=== PATIENT | male | born 1970 | race Caucasian/White ===

== ENCOUNTER 2024-06-20 17:40 | Emergency (ER) | payer OTHER ==
--- NOTE | 2024-06-20 20:29 | ED ---
Trauma HPI - General Chief Complaint: Extremity Injury, Upper Stated Complaint: posb broken wrist Time Seen by Provider: 06/20/24 18:20 Source: patient Mode of arrival: ambulatory Limitations: no limitations - History of Present Illness Initial Comments: 53-year-old male presents to the emergency department with right wrist pain. States that he fell off of the back of his work truck. He went into urgent care. Had confirmed fracture. States that he was placed in a splint and referred to the hospital because he was having some tingling in the palm of his hand. Patient is able to move all 5 digits. He does have flexion and extension at the wrist however it is painful. Patient is right-hand dominant. He denies any injuries additional injuries. No head injury. Patient does not take any blood thinners. No elbow or shoulder pain. No other alleviating, precipitating or modifying factors - Related Data Previous Rx's Medication Instructions Recorded HYDROcodone/APAP 7.5-325MG [[place] 1 tab PO Q6HR PRN 3 Days #12 tab 06/20/24 7.5-325] Ibuprofen [Motrin] 600 mg PO Q8HR PRN #30 tab 06/20/24 Allergies Allergy/AdvReac Type Severity Reaction Status Date / Time Penicillins Allergy Rash/Hives Verified 06/20/24 18:22 Review of Systems ROS Statement: Those systems with pertinent positive or pertinent negative responses have been documented in the HPI. ROS Other: All systems not noted in ROS Statement are negative. Past Medical History Past Medical History: CVA/TIA History of Any Multi-Drug Resistant Organisms: None Reported Additional Past Surgical History / Comment(s): septal occluder Past Psychological History: No Psychological Hx Reported Smoking Status: Never smoker Past Alcohol Use History: None Reported Past Drug Use History: None Reported General Exam Limitations: no limitations General appearance: alert, in no apparent distress Head exam: Present: atraumatic, normocephalic, normal inspection Eye exam: Present: normal appearance, PERRL, EOMI. Absent: scleral icterus, conjunctival injection, periorbital swelling Cardiovascular Exam: Present: regular rate, normal rhythm, normal heart sounds. Absent: systolic murmur, diastolic murmur, rubs, gallop, clicks GI/Abdominal exam: Present: soft, normal bowel sounds. Absent: distended, tenderness, guarding, rebound, rigid Extremities exam: Present: other (Soft brace on the right wrist. Patient does have some obvious bruising and swelling. No significant deformity. Full normal range of motion of all 5 digits. Patient does have intact sensation to to point discrimination and light touch. Compartments are soft) Course Vital Signs 06/20/24 06/20/24 18:18 20:50 Temperature 98.1 F 98.2 F Pulse Rate 62 64 Respiratory 16 18 Rate Blood Pressure 132/77 107/72 O2 Sat by Pulse 99 98 Oximetry Medical Decision Making - Medical Decision Making Was pt. sent in by a medical professional or institution (, PA, [employer], urgent care, hospital, or snf...) When possible be specific @ -Patient was sent in from urgent care Did you speak to anyone other than the patient for history (EMS, parent, family, police, friend...)? What history was obtained from this source @ -Spoke with significant other for history Did you review nursing and triage notes (agree or disagree)? Why? @ -I reviewed and agree with nursing and triage notes Were old charts reviewed (outside hosp., previous admission, EMS record, old EKG, old radiological studies, urgent care reports/EKG's, snf records)? Report findings @ -I reviewed the x-rays that were performed at the urgent care Differential Diagnosis (chest pain, altered mental status, abdominal pain women, abdominal pain men, vaginal bleeding, weakness, fever, dyspnea, syncope, headache, dizziness, GI bleed, back pain, seizure, CVA, palpatations, mental health, musculoskeletal)? @ -Differential Musculoskeletal Muscular strain, contusion, ligament sprain, fracture, arthritis, septic arthritis, bursitis, cellulitis, muscle spasm, nerve compression, DVT, arterial occlusion, herpes zoster, electrolyte abnormality, tumor.... This is not meant to be in all inclusive list EKG interpreted by me (3pts min.). @ -None X-rays interpreted by me (1pt min.). @ -None done CT interpreted by me (1pt min.). @ -None done U/S interpreted by me (1pt. min.). @ -None done What testing was considered but not performed or refused? (CT, X-rays, U/S, labs)? Why? @ -None What meds were considered but not given or refused? Why? @ -None Did you discuss the management of the patient with other professionals (professionals i.e. , PA, [employer], lab, RT, psych nurse, delinquency prevention social worker, inclusion paraeducator, teacher, audit officer, dependency case manager)? Give summary @ -No Was smoking cessation discussed for >3mins.? @ -No Was critical care preformed (if so, how long)? @ -No Were there social determinants of health that impacted care today? How? (Homelessness, low income, unemployed, alcoholism, drug addiction, transportation, low edu. Level, literacy, decrease access to med. care, correction, rehab)? @ -No Was there de-escalation of care discussed even if they declined (Discuss DNR or withdrawal of care, Hospice)? DNR status @ -No What co-morbidities impacted this encounter? (DM, HTN, Smoking, COPD, CAD, Cancer, CVA, ARF, Chemo, Hep., AIDS, mental health diagnosis, sleep apnea, morbid obesity)? @ -None Was patient admitted / discharged? Hospital course, mention meds given and route, prescriptions, significant lab abnormalities, going to OR and other pertinent info. @ -Upon arrival patient seen and evaluated in [place] [id number]. Thorough history and physical exam was performed. I did review the x-rays that came with the patient from urgent care. Demonstrates nondisplaced fracture of the radius. Patient does have some neuropraxia. He is placed in a sugar-tong splint. Patient is to follow-up with orthopedics for further management of his injury. Patient is aware that he is not to get his splint wet. Do not take it off. Rest, ice and elevate the extremity. He was prescribed pain medications. Instructed to return for any new or worsening symptoms. Patient agreeable plan was discharged in stable condition Undiagnosed new problem with uncertain prognosis? @ -No Drug Therapy requiring intensive monitoring for toxicity (Heparin, Nitro, Insulin, Cardizem)? @ -No Were any procedures done? @ -No Diagnosis/symptom? @ -Acute fall off truck, acute right distal radius fracture Acute, or Chronic, or Acute on Chronic? @ -Acute Uncomplicated (without systemic symptoms) or Complicated (systemic symptoms)? @ -Uncomplicated Side effects of treatment? @ -No Exacerbation, Progression, or Severe Exacerbation? @ -No Poses a threat to life or bodily function? How? (Chest pain, [place], [place], pneumonia, PE, COPD, DKA, ARF, appy, cholecystitis, CVA, Diverticulitis, Homicidal, Suicidal, threat to staff... and all critical care pts) @ -No Disposition Clinical Impression: Right radial fracture, Fall Disposition: HOME SELF-CARE Condition: Stable Instructions (If sedation given, give patient instructions): Wrist Fracture in Adults (ED) Additional Instructions: Please call the office in the morning to make an appointment with the orthopedic doctor. Take the Tylenol threes tonight as needed for pain control. Alternate the Motrin with [place] every 4 hours tomorrow. Please eat before you take them. Rest, ice and elevate the extremity. Wear the splint. Do not get the splint wet as it will fall apart. They will cast you in the orthopedic office. Return for any new or worsening symptoms Prescriptions: Ibuprofen [Motrin] 600 mg PO Q8HR PRN #30 tab PRN Reason: Pain HYDROcodone/APAP 7.5-325MG [[place] 7.5-325] 1 tab PO Q6HR PRN 3 Days #12 tab PRN Reason: Pain Is patient prescribed a controlled substance at d/c from ED?: Yes When asked, does pt state using other controlled substances?: No If prescribed controlled substance>3 days was MAPS reviewed?: Prescribed <3 Days If opioid is for acute pain is fill amount 7 days or less?: Yes Referrals: Clayton Jones MD [Primary Care Provider] - 1-2 days Garcia Payton MD [STAFF PHYSICIAN] - 1-2 days Time of Disposition: 20:28
[2024-06-20] MEDS: HYDROcodone/APAP 10-325MG 1 EACH TAB PO ONE (20:46)
[2024-06-20] MEDS: ACET/COD 300 MG/30 MG STARTER PACK 6 TAB BTL PO STA (20:47)
[2024-06-20 20:51] VITALS: BP 107/72; PULSE 64; RESP 18; TEMP 98.2
== END 2024-06-20 20:51 | disposition home or self-care (01) ==
LOC: EC 17:40
DX: S52.501A Unspecified fracture of the lower end of right radius, initial encounter for closed fracture (principal); Z88.0 Allergy status to penicillin; W19.XXXA Unspecified fall, initial encounter
CPT/HCPCS: 29125; 99283

== ENCOUNTER → 2024-06-28 | Outpatient (CLI) | payer OTHER ==
--- NOTE | 2024-06-29 12:31 | CT ---
EXAMINATION TYPE: CT wrist RT wo con DATE OF EXAM: 06/28/2024 4:06 PM COMPARISON: . Extremity radiograph 2012 2024. CLINICAL INDICATION: Male, 53 years old with history of S52.571A INTARTIC FRACTURE OF LOWER END OF RI GHT R; PH[facility], right wrist fx TECHNIQUE: Axial images were obtained of the CT wrist RT wo con, Additional coronal and sagittal refo rmatted images and soft tissue and bone window were obtained for review. 3-D reconstruction was creat ed on a separate workstation. Contrast used: mL of , (None if empty) Oral contrast used: (None if empty) CT DLP: 120.7 mGycm, Automated exposure control for dose reduction was used. FINDINGS: Distal radius intra-articular comminuted fracture with articular portion separation of bone 3 mm series 13 image 26. Remainder of the osseous structures are thought to be intact. There is soft tissue swelling throughout the wrist. IMPRESSION: Intra-articular comminuted fracture of the distal radius with displacement up to 3 mm of the articula r surface. No additional fractures visualized. [facility], , 06/29/2024 12:29 PM
== END | disposition home or self-care (01) ==
LOC: RADCTMAIN 15:37
PROVIDERS: ATTEND Orthopaedic Surgery
DX: S52.571A Other intraarticular fracture of lower end of right radius, initial encounter for closed fracture (principal); X58.XXXA Exposure to other specified factors, initial encounter